=== PATIENT | male | born 1985 | race Caucasian/White ===

== ENCOUNTER 2018-06-17 10:35 | Inpatient (IN) | payer OTHER ==
[~2018-06-17 10:35] MED LIST: Buffered Lidocaine 0.9% SYRIN* 5 ML/SYR SYRINGE INTRADERM ONE
--- OUTSIDE RECORDS SUMMARY | 2018-06-17 10:39 | XMS REPORT | Continuity of Care Document ---
:1985 External Reference #:[id number] Author Name Evelia Romo PA Address [address] [facility] [place] [address] Care Team Providers Name Role Phone Evelia Romo PA Care Team Information [employer] Supervisor Unavailable Payers Type Date Identification Numbers Payment Provider Subscriber Effective: 2018 Policy Number: [id number] [facility] Eric Mckeon PayID: [id number] [address] [place] [address] Advance Directives Description No Information Available Problems Description No Information Family History Date Family Member(s) Problem(s) Comments Father Hypoglycemic Mother COPD First Sister Stroke Grandmother Cancer Lung Social History Type Date Description Comments Sex Unknown Education Highest level completed, 2 years of college Marital Status Single Occupation Currently Working Counterman ETOH Use Occasionally consumes alcohol Tobacco Use Start: Unknown Patient has never smoked Allergies, Adverse Reactions, Alerts Date Description Reaction Status Severity Comments 02/26/2017 Latex redness, burning, and itching Active Medications Medication Date Status Form Strength Qnty SIG Indications Ordering Provider Amoxicillin 05/18/ Hx Tablets 875mg 14tabs 1 pill by H66.93 Nate 2017 - mouth Sunday, 05/25/ twice a DO 2018 day x 7 days Vitamin D 04/03/ Active Capsules 2000Unit 90caps 2 by mouth Nate, 2018 every day Sunday, DO Montelukast 04/03/ Active Tablets 10mg 30tabs 1 by mouth J30.9 Nate Sodium 2018 every day Sunday DO Acetaminophen 02/26/ Active Tablets 500mg 2 by mouth Nate, 2016 three Sunday, times a DO day as needed Metformin HCL / Active Tablets 500mg 1 W/ Unknown 0000 Breakfast 2 AT Dinner Levocetirizine 04/01/ Hx Tablets 5mg 90tabs Take One J30.9 Lisa Sullivan 2016 - Tablet By Sunday, DO 2017 Every Day Etodolac 02/26/ Hx Capsules 200mg as needed Nate 2017 - Sunday, 2017 Immunizations CPT Code Status Date Vaccine Lot # [id number] Refused 05/18/2018 Influenza Virus Vaccine,Quadrivalent,Split,Preserv Free 6-35 Mos Vital Signs Date Vital Result Comment 05/18/2018 3:30pm Weight 413.44 lb pr PT Heart Rate 70 /min BP Systolic 140 mmHg BP Diastolic 90 mmHg Respiratory Rate 18 /min 04/03/2018 2:11pm Weight 415.00 lb pr PT Heart Rate 72 /min BP Systolic 138 mmHg BP Diastolic 84 mmHg Respiratory Rate 18 /min Height 75 inches 6'3" BMI (Body Mass Index) 51.9 kg/m2 10/21/2017 8:00am Weight 386.00 lb Heart Rate 76 /min BP Systolic 144 mmHg BP Diastolic 90 mmHg Respiratory Rate 18 /min Height 75 inches 6'3" BMI (Body Mass Index) 48.2 kg/m2 03/31/2017 8:01am Body Temperature 98.6 F Weight 425.00 lb Heart Rate 88 /min BP Systolic 142 mmHg BP Diastolic 84 mmHg BP Systolic Recheck 138 mmHg BP Diastolic Recheck 84 mmHg Respiratory Rate 18 /min Height 75 inches 6'3" BMI (Body Mass Index) 53.1 kg/m2 02/26/2017 1:08pm Body Temperature 97.4 F Weight 428.00 lb Heart Rate 86 /min BP Systolic 130 mmHg BP Diastolic 90 mmHg BP Systolic Recheck 148 mmHg BP Diastolic Recheck 96 mmHg Respiratory Rate 18 /min Height 75 inches 6'3" O2 % BldC Oximetry 98 % BMI (Body Mass Index) 53.5 kg/m2 Results Test Date Facility Test Result H/L Range Note CBC with Auto Diff-fcmg 04/08/2018 [facility] WBC 10.0 K/uL 4.1-11.0 RBC 4.90 M/uL 4.60-6.10 Hemoglobin 15.0 gm/dL 13.5-18.0 Hematocrit 43.3 % 41.0-53.0 MCV 88.4 fL 80.0-97.0 MCH 30.7 pg 27.0-32.0 MCHC 34.7 g/dL 32.0-36.0 RDW 12.9 % 11.5-14.5 PLT Count 314 K/ul 140-400 MPV 7.0 FL Low 7.1-10.7 Neutrophil 65.0 % 35.0-75.0 Lymphocyte 24.7 % 16.0-52.0 Monocyte 6.4 % 2.0-10.0 Eosinophil 3.5 % 0.0-5.0 Basophil 0.4 % 0.0-4.0 Abs Neutrophils 6.5 K/uL 2.1-8.0 Abs Lymphocytes 2.5 K/uL 0.8-5.5 Abs Monocytes 0.6 K/uL 0.1-1.0 Abs Eosinophils 0.4 K/uL 0.0-0.5 Abs Basophils 0.0 K/uL 0.0-0.3 Comprehensive Met Panel-FCMG 04/08/2018 [facility] Sodium 141 mmol/L 135- 146 1 Potassium 4.4 mmol/L 3.5-5.2 Chloride# 105 mmol/L 97-110 2 Carbon Dioxide 26 mmol/L 24-34 Glucose 98 mg/dL 70-105 BUN 17 mg/dL 6-26 Creatinine 0.8 mg/dL 0.5-1.4 Calcium 9.1 mg/dL 8.5-10.2 Total Protein 6.6 g/dL 6.0-8.0 Albumin 4.0 g/dL 3.6-4.9 Globulin 2.6 g/dL 2.0-3.5 A/G Ratio 1.5 Ratio 1.0-2.2 Total Bilirubin 0.4 mg/dL 0.1-1.3 Alkaline Phosphatase 35 U/L 24-140 Alt 17 U/L 3-42 Ast 10 U/L 8-42 Izabella Egfr >60 >60 3 Non Izabella Egfr >60 >60 4 Anion Gap 10 mmol/L 5-15 5 Hemoglobin A[facility]c [facility] A1[facility] 5.4 % 4.1-5.9 Estimated Average Glucose Calc 108 mg/dL 71-140 Lipid 04/08/2018 [facility] Cholesterol 177 mg/dL 50-199 Triglycerides 103 mg/dL 30-200 HDL 37 mg/dL 29-71 6 Chol/ HDL Ratio 4.8 ratio 4.0-6.7 VLDL 21 mg/dL 2-29 LDL (Calc) 120 mg/dL High 20-99 7 CBC With Auto Diff 02/26/2017 [facility] WBC 12.3 K/uL High 4.1-11.0 RBC 5.18 M/uL 4.60-6.10 Hemoglobin 15.7 gm/dL 13.5-18.0 Hematocrit 47.5 % 41.0-53.0 MCV 91.7 fL 80.0-97.0 MCH 30.2 pg 27.0-32.0 MCHC 33.0 g/dL 32.0-36.0 RDW 13.2 % 11.5-14.5 PLT Count 385 K/ul 140-400 Neutrophil 63.5 % 35.0-75.0 Lymphocyte 25.4 % 16.0-52.0 Monocyte 6.4 % 2.0-10.0 Eosinophil 4.0 % 0.0-5.0 Basophil 0.7 % 0.0-4.0 Abs Neutrophils 7.8 K/uL 2.1-8.0 Abs Lymphocytes 3.1 K/uL 0.8-5.5 Abs Monocytes 0.8 K/uL 0.1-1.0 Abs Eosinophils 0.5 K/uL 0.0-0.5 Abs Basophils 0.1 K/uL 0.0-0.3 Laboratory test finding 02/26/2017 [facility] TSH 1.51 uIU/mL 0.35-4.94 Comprehensive Met Panel-FCMG 02/26/2017 [facility] Sodium 145 mmol/L 135- 146 8 Potassium 5.2 mmol/L 3.5-5.2 Chloride# 104 mmol/L 97-110 9 Carbon Dioxide 28 mmol/L 24-34 Glucose 105 mg/dL 70-105 BUN 13 mg/dL 6-26 Creatinine 0.8 mg/dL 0.5-1.4 Calcium 9.8 mg/dL 8.5-10.2 Total Protein 7.5 g/dL 6.0-8.0 Albumin 4.2 g/dL 3.6-4.9 Globulin 3.3 g/dL 2.0-3.5 A/G Ratio 1.3 Ratio 1.0-2.2 Total Bilirubin 0.4 mg/dL 0.1-1.3 Alkaline Phosphatase 51 U/L 24-140 Alt 21 U/L 3-42 Ast 18 U/L 8-42 Izabella Egfr >60 >60 10 Non Izabella Egfr >60 >60 11 Anion Gap 13 mmol/L 7-16 12 Lipid 02/26/2017 [facility] Cholesterol 200 mg/dL High 50-199 Triglycerides 107 mg/dL 30-200 HDL 44 mg/dL 29-71 13 Chol/ HDL Ratio 4.5 ratio 4.0-6.7 VLDL 21 mg/dL 2-29 LDL (Calc) 135 mg/dL High 20-99 14 Hemoglobin A1c 02/26/2017 [facility] Hemoglobin A1c 6.3 % High 4.1-5.9 Estimated Average Glucose Calc 134 71-140 1 Updated reference range on new analyzer 2 Updated reference range on new analyzer 3 Concerning GFR Guidelines for Americans: Normal function or mild renal disease, if clinically at risk: >/=60 mL/min Moderately decreased: 30-59 Severely decreased: 15-29 Renal failure: <15 4 Concerning GFR Guidelines: Normal function or mild renal disease, if clinically at risk: >/=60 mL/min Moderately decreased: 30-59 Severely decreased: 15-29 Renal failure: <15 Glomerular Filtration Rate (GFR) is estimated based on the MDRD equation, which assumes a steady state for creatinine as recommended by the National Kidney Disease Education Program in conjunction with the National Institutes of Health and the National Kidney Foundation. Clinical conditions in which it may be necessary to measure GFR by using clearance methods include extremes of age and body size, severe malnutrition or obesity, diseases of skeletal muscle, paraplegia or quadriplegia, vegetarian diet, rapidly changing kidney function, and calculation of the dose of potentially toxic drugs that are excreted by the kidneys. 5 Updated Reference Range 6 Per NCEP ATP III Guidelines: Results lower than 40 mg/dL are suggestive of increased risk for coronary artery disease. Results > or=to 60 mg/dL are considered a negative risk factor. 7 Per NCEP ATP III Guidelines: Normal Population <130 Patients with medical conditions: CHD/DM Optimal: <100 Borderline high: 130-159 High: 160-189 Very high: >189 8 Updated reference range on new analyzer 9 Updated reference range on new analyzer 10 Concerning GFR Guidelines for Americans: Normal function or mild renal disease, if clinically at risk: >/=60 mL/min Moderately decreased: 30-59 Severely decreased: 15-29 Renal failure: <15 11 Concerning GFR Guidelines: Normal function or mild renal disease, if clinically at risk: >/=60 mL/min Moderately decreased: 30-59 Severely decreased: 15-29 Renal failure: <15 Glomerular Filtration Rate (GFR) is estimated based on the MDRD equation, which assumes a steady state for creatinine as recommended by the National Kidney Disease Education Program in conjunction with the National Institutes of Health and the National Kidney Foundation. Clinical conditions in which it may be necessary to measure GFR by using clearance methods include extremes of age and body size, severe malnutrition or obesity, diseases of skeletal muscle, paraplegia or quadriplegia, vegetarian diet, rapidly changing kidney function, and calculation of the dose of potentially toxic drugs that are excreted by the kidneys. 12 Updated reference range on new analyzer 13 Per NCEP ATP III Guidelines: Results lower than 40 mg/dL are suggestive of increased risk for coronary artery disease. Results > or=to 60 mg/dL are considered a negative risk factor. 14 Per NCEP ATP III Guidelines: Normal Population <130 Patients with medical conditions: CHD/DM Optimal: <100 Borderline high: 130-159 High: 160-189 Very high: >189 Procedures Date Code Description Status 02/26/2017 95269 Measure Blood Oxygen Level Single Determination Completed 02/26/2017 60315 Screening Hearing Test Completed Encounters Type Date Location Provider Dx Diagnosis Office Visit 04/03/2018 Evelia Lam PA J30.9 Allergic rhinitis, 2:00p unspecified Z68.43 Body mass index (BMI) 50-59.9 , adult Office Visit 10/21/2017 8:00a [facility] Evelia Romo PA R03.0 Elevated blood-pressure reading, w/o diagnosis of htn E66.9 Obesity, unspecified Z68.42 Body mass index (BMI) 45.0-49.9, adult Office Visit 03/31/2017 8:00a [facility] Evelia Romo PA R03.0 Elevated blood-pressure reading, w/o diagnosis of htn Office Visit 02/26/2017 1:15p [facility] Evelia Romo PA Z00.00 Encntr for general adult medical exam w/o abnormal findings E66.9 Obesity, unspecified R03.0 Elevated blood-pressure reading, w/o diagnosis of htn Plan of Treatment Future Appointment(s):11/16/2018 9:00 am - Evelia Romo PA at [facility]2017 - Evelia Romo, PAH66.93 Otitis media, unspecified, bilateralNew Medication:Amoxicillin 875 mg - 1 pill by mouth twice a day x 7 daysComments:BL OM, L > RWill treat with amoxTylenol/ibuprofen to help with painPush fluidsCall with worsening/persisting [id number] Elevated blood-pressure reading, without diagnosis of hypertComments:BP improved todayWill continue to monitorCall/to ER with chest pain, palpitations, SOB, headache, dizziness, vision changesFollow up:6 months
[2018-06-17] MEDS ORDERED: ceFAZolin 1 GM ADVAN(*) 1 GM ADDV.VIAL IVPB ONE ×2 (11:08→11:40)
[2018-06-17] MEDS ORDERED: ceFAZolin 2 GM PREMIX in ORs 2 GM/50 ML BAG IVPB ONE (11:09)
[2018-06-17] MEDS ORDERED: Clindamycin 900 MG/D5W BAG(*) 900 MG/50 ML BAG IVPB ONE (11:09)
[2018-06-17] MEDS ORDERED: Bupivacaine 0.25% EPI 200,000* 30 ML SDV ONE (11:54)
[2018-06-17] MEDS ORDERED: Heparin VIAL(*) 5000 UNITS/ML VIAL (FIVE THOUSAND) ONE (12:05)
[2018-06-17] MEDS ORDERED: fentaNYL* 50 MCG/ML 2 ML VIAL (100 MCG VIAL) ONE ×5 (12:16→15:32)
[2018-06-17] MEDS ORDERED: Propofol* 10 MG/ML 20 ML BTL ONE (12:17)
[2018-06-17] MEDS ORDERED: Rocuronium* 10 MG/ML VIAL ONE ×2 (12:18→12:19)
[2018-06-17] MEDS ORDERED: Ketorolac INJ* 30 MG/ML 1 ML VIAL ONE (13:58)
[2018-06-17] MEDS ORDERED: Ondansetron INJ* 2 MG/ML VIAL ONE ×2 (13:58→15:32)
[2018-06-17] MEDS ORDERED: Dexamethasone IV* 4 MG/ML 1 ML (4 MG) ONE (13:58)
[2018-06-17] MEDS ORDERED: Cisatracurium* 2 MG/ML MDV 5 ML ONE (14:09)
[2018-06-17] MEDS ORDERED: DiMENhydriNATE IV* 50 MG/ML VIAL IV PUSH PRN (14:15)
[2018-06-17] MEDS ORDERED: Naloxone* 0.4 MG/ML 1 ML VIAL IV PRN (14:15)
[2018-06-17] MEDS ORDERED: Glycopyrrolate IV* 0.2 MG/ML 1 ML VIAL ONE (14:37)
[2018-06-17] MEDS ORDERED: Neostigmine Methylsulfate* 1 MG/ML 10 ML VIAL (1 mg/ml) ONE (14:37)
[2018-06-17] MEDS ORDERED: diPHENhydraMINE IV* 50 MG/ML 1 ml VIAL (BENADRYL) SLOW PUSH PRN (14:43)
[2018-06-17] MEDS ORDERED: HYDROcodone/ACET. 7.5/325 LIQ* 15 ML UDC PO PRN (14:43)
[2018-06-17] MEDS ORDERED: HYDROmorphone INJ1* 1 MG/ML SYRINGE IV PRN (14:43)
[2018-06-17] MEDS ORDERED: Ondansetron INJ* 2 MG/ML VIAL IV PRN (14:43)
[2018-06-17] MEDS ORDERED: Acetaminophen ADULT LIQ* 650 MG/20.3 ML UDC PO PRN (14:43)
--- NOTE | 2018-06-17 14:43 | BRIEFOPN ---
Brief Operative Note - Surgery Procedures: Pre-OP Diagnoses: Clinically severe obesity Post-op Diagnosis: same Procedure: Laparoscopic sleeve gastrectomy Surgeon: Helio Asst: Sammy Anethesia: GETA EBL: 50cc IVF: 1800cc LR Specimen: portion of stomach Drains: none
[2018-06-17] MEDS ORDERED: Scopolamine 1.5 mg* PATCH ONE (14:55)
[2018-06-17] MEDS ORDERED: DiMENhydriNATE IV* 50 MG/ML VIAL ONE ×2 (14:55→15:32)
[2018-06-17] MEDS: fentaNYL* 50 MCG/ML 2 ML VIAL (100 MCG VIAL) IV PRN ×4 (15:01→16:10)
[2018-06-17] MEDS: Ketorolac INJ* 30 MG/ML 1 ML VIAL IV PRN (20:17)
[2018-06-17] MEDS: Famotidine IV* 10 MG/ML 2 ML (20 mg) IV SLOW PU SCH (20:22)
[2018-06-17] MEDS: Heparin VIAL(*) 5000 UNITS/ML VIAL (FIVE THOUSAND) SUBCUT SCH (23:25)
[2018-06-18] MEDS: Ketorolac INJ* 30 MG/ML 1 ML VIAL IV PRN ×2 (02:21→10:19)
[2018-06-18] MEDS: Heparin VIAL(*) 5000 UNITS/ML VIAL (FIVE THOUSAND) SUBCUT SCH ×2 (05:28→14:21)
--- NOTE | 2018-06-18 05:35 | OP ---
CC: Evelia Romo NP; [facility].* DATE OF OPERATION: 06/17/18 - ROOM #353 DATE OF : 87 SURGEON: Mariano Cadet MD. TAILOR HELPER: JOHN Nowak. ANESTHESIOLOGIST: Dr. Machado. ANESTHESIA: General anesthesia. PRE-OP DIAGNOSIS: Clinically severe obesity. POST-OP DIAGNOSIS: Clinically severe obesity. OPERATIVE PROCEDURE: Laparoscopic sleeve gastrectomy. ESTIMATED BLOOD LOSS: 50 mL. FLUIDS: 1800 mL of crystalloid fluid given. SPECIMEN: Portion of stomach. DRAINS: None. The patient was extubated and transferred to PACU. DESCRIPTION OF PROCEDURE: The patient was identified in the preoperative area, marked. Consent was signed. He was taken to the operating room, placed on the operating table in supine position. Preoperative antibiotics were given. Sequential devices were placed on bilateral lower extremities. General anesthesia was induced. The patient's abdomen was prepped and draped in a standard surgical fashion. A time-out was performed. Folds of the umbilicus were elevated anteriorly and a Veress needle was inserted into the abdominal cavity, which was then allowed to insufflate to a pressure of 15 mmHg. The patient tolerated the insufflation well. [place] between the xiphoid and the umbilicus just left the midline, a 12-mm trocar was inserted. Laparoscope was inserted through this and there was no evidence of injury from the trocar insertion or from the Veress needle, which was then removed. Review of the abdomen showed large omentum, a reasonably sized liver, and we appreciated with surgery, which included placing two 5 mm ports in the left upper quadrant and one 12 mm port in the right upper quadrant. The patient was placed in a steep reverse Trendelenburg and a Rocio retractor that was inserted through a subxiphoid incision and the liver was retracted anteriorly to the right, exposing a significantly large gastroesophageal fat pad. This was grasped and retracted towards the right lower quadrant. Both blunt dissection and cautery were utilized to take this fat off and rotated towards the midline. We extended this towards the diaphragm. Next, a retrogastric tunnel was made at approximately 5 cm from the pylorus, proximally along the greater curvature. We took the vasculature to the greater curvature with LigaSure device right up to the angle of His, which previously dissected. It did require dissection of additional fat pad anteriorly. There was no significant fat pad noted posteriorly and there was no evidence of a hiatal hernia. Once the stomach was able to be rotated along its axis, the sleeve stomach stapling was commenced. We upsized the 12 mm trocar in the right upper quadrant to a 15 mm and then inserted a 60 mm black load SHON stapling devices with reinforcement strips, placed just along the greater curvature at 5 cm proximal to the pylorus and extending it towards the incisura. Prior to firing this, a 40-Indonesian bougie was inserted into the distal stomach. The stapler was taken and after the stapler was fired, we noted that it did extend towards the creeping fat off the lesser curvature. This fat was then dissected off the stapler line and we extended this superiorly along the anterior aspect of the stomach. This required a clip-car and yard supervisor and LigaSure to gain hemostasis off this lesser omentum extended fat, but this gave us an opportunity to now see the anterior stomach closer to the lesser curvature and then another 60 mm purple SHON stapler device was fired across, making sure to go through healthy stomach and avoid the fat. We did dissect additional proximal fat that was creeping from the lesser curvature up towards where we had already freed up the gastroesophageal fat pad. This gave us a clean view of the anterior aspect of the stomach and the sleeve stomach was completed with additional 60 mm purple SHON stapling device with reinforcement straps until a full sleeve stomach was created. We stayed closest to the bougie as we could. There was significant creeping fat both posterior and anteriorly, along the lesser curvature and we stayed out of this area. The bougie was then removed. Review of the staple line showed that it did take a small little anterior jump at the second staple line, but then carried back onto a line that stayed mostly on the lateral aspect. There was no corkscrewing and there was no angulation. We then irrigated and cleaned up some of the blood loss that we noted on dissecting some of the creeping fat off of that lesser curvature. Hemostasis was achieved. We did end up placing some Surgicel along the fold of the second staple line. Next, the Rocio retractor was removed after the bougie was removed in its entirety. The liver fell back on to the stomach. It did not obscure the sleeve stomach entirely, but mostly. Next, the stomach was placed in an endoscopic retrieval bag and brought up through the right upper quadrant port site after dilating this wound. This was passed off as specimen and then the fascia was closed at the right upper quadrant port site using a Weck device using a 0 Vicryl stitch. The abdomen was allowed to collapse. Trocars were removed under direct vision and all skin incisions were reapproximated with 4-0 Monocryl sub followed by sterile dressing. The patient tolerated the procedure well and was woken up in the OR, and transferred to the PACU in stable condition. [id number]/[facility] #: [id number] MTDD
[2018-06-18] MEDS: Famotidine IV* 10 MG/ML 2 ML (20 mg) IV SLOW PU SCH (08:29)
--- NOTE | 2018-06-18 12:35 | PN ---
Progress Note - Progress Note Date of Service: 06/18/18 Note: S: Seen briefly in radiology by Dr. Cadet. Doing well. Pain controlled. No N/V. Ambulating O: Vital Signs - 8 hr 06/18/18 06/18/18 06/18/18 07:10 08:00 08:38 Temperature 97.8 F Pulse Rate 59 48 Respiratory 16 20 Rate Blood Pressure 152/78 (mmHg) O2 Sat by Pulse 100 100 98 Oximetry 06/18/18 06/18/18 10:22 11:14 Temperature 98.6 F Pulse Rate 55 50 Respiratory 16 Rate Blood Pressure 134/65 (mmHg) O2 Sat by Pulse 98 100 Oximetry Intake and Output Last 24 Hours 06/16/18 06/17/18 06/18/18 06/19/18 06:59 06:59 06:59 06:59 Intake Total 4180 Output Total 1225 225 Balance 2955 -225 Weight 395 lb Intake: IV Fluids 4180 CEFAZOLIN 3GM IV 100 CLINDAMYCIN 900MG IV 50 LR 4030 Oral 0 Output: Urine 1125 225 Estimated Blood Loss 100 Other: # Bowel Movements 0 Gen: appears comfortable; NAD Heart: reg Lungs: clear ant Abd: lap sites clean and dry; +BS; soft; no sig tenderness UGI: patent; no leak A: s/p lap sleeve gastrectomy P: kimberley clears; poss d/c home later today
[2018-06-18] MEDS ORDERED: D5W 1/2 NS KCl 20 Meq 1000 ML* 1,000 ML IV SCH (14:44)
[2018-06-18 15:29] VITALS: BP 160/81
--- NOTE | 2018-06-18 15:51 | DS ---
CC: JOHN Vasquez; [facility] * DATE OF ADMISSION: 06/17/2018. DATE OF DISCHARGE: 06/18/2018. HISTORY: Mr. Mckeon is a 33-year-old gentleman, worked up as an outpatient with clinically severe obesity and presented to Same Day Surgery on 06/17/2018 and underwent a laparoscopic sleeve gastrectomy. Please see operative report for details. HOSPITAL COURSE: In the postoperative period, the patient was transferred to the Short Stay Surgical Unit where he continued to do well, ambulating and was treated for pain. On postoperative day one, the patient underwent an upper GI study which was within normal limits. He was started on a liquid diet and was discharged home with instructions sheets and a planned follow-up next week. PHYSICAL EXAMINATION: Physical exam was performed on the day of discharge. The patient was afebrile. Vital signs were stable. Alert and oriented times three, in no apparent distress. HEENT: Normocephalic, atraumatic. Sclerae anicteric. Mucus membranes are moist. Lungs are clear to auscultation bilaterally. Abdomen is soft, obese, tender at the right upper quadrant without rebound. Dressing is intact. Extremities were within normal limits. No calf tenderness. PLAN: Discharge home, status post sleeve gastrectomy. [id number]/[facility] #: [id number] [facility]ITAL[facility]
[2018-06-20] MEDS ORDERED: Scopolamine PATCH Remove* 1 NOTE MISC PATCH OFF ONE (15:35)
== END 2018-06-18 16:00 | disposition home or self-care (01) | DRG 403 ==
LOC: AA 10:35 → SSU 16:34
PROVIDERS: ADMIT Surgery; ATTEND Surgery
PROC: 0DB64Z3 Excision of Stomach, Percutaneous Endoscopic Approach, Vertical (ICD-10-PCS; principal; 2018-06-17 12:30)
DX: E66.01 Morbid (severe) obesity due to excess calories (principal); R73.01 Impaired fasting glucose; G47.33 Obstructive sleep apnea (adult) (pediatric); F32.9 Major depressive disorder, single episode, unspecified; I10 Essential (primary) hypertension; Z83.3 Family history of diabetes mellitus; Z82.3 Family history of stroke; Z83.6 Family history of other diseases of the respiratory system; Z91.040 Latex allergy status; Z72.89 Other problems related to lifestyle; Z68.43 Body mass index [BMI] 50.0-59.9, adult
CPT/HCPCS: 74246; 88307; 90686; A9270-GY; J0690; J1100; J1170; J1240; J1644; J1885; J2405; J2704; J2710; J3010

== ENCOUNTER 2019-05-13 09:34 | Emergency (ER) | payer OTHER ==
[2019-05-13 11:45] VITALS: BP 137/86
--- NOTE | 2019-05-13 12:14 | UC ---
Shoulder Pain HPI - HPI Summary HPI Summary: 34 yo male with right shoulder pain x 2 weeks was reaching to leaf size picker object and felt a pop he is right handed no neck pain - History of Current Complaint Chief Complaint: UCUpperExtremity Stated Complaint: R SHOULDER PAIN Time Seen by Provider: 05/13/19 11:47 Hx Obtained From: Patient Onset/Duration: Gradual Onset Timing: Constant Severity Initially: Moderate Severity Currently: Mild Location Of Pain: Is Diffuse Pain Intensity: 2 Pain Scale Used: 0-10 Numeric Character: Dull, Aching Aggravating Factor(s): Movement, Internal Rotation Alleviating Factor(s): Rest Related History: Dominant Hand Right Torso: 1 - pain here, unable to abduct greater than 90 degrees - Allergies/Home Medications Allergies/Adverse Reactions: Allergies Allergy/AdvReac Type Severity Reaction Status Date / Time latex Allergy redness Verified 05/13/19 11:46 and itchness Home Medications: Home Medications Acetaminophen [APAP] 650 mg PO Q4HR PRN 05/13/19 [History Confirmed 05/13/19] Multivitamin [Multivitamins] 1 cap PO DAILY 05/13/19 [History Confirmed 05/13/19 ] PMH/Surg Hx/FS Hx/Imm Hx Previously Healthy: Yes Respiratory History: Asthma - Surgical History Surgical History: Yes Surgery Procedure, Year, and Place: EAR TUBES-REPORTS NO TUBES AT PRESENT, bariatric surgery 06/2018, vasectomy 01/2019 - Family History Known Family History: Positive: Hypertension - Social History Alcohol Use: Occasionally Substance Use Type: None Smoking Status (MU): Never Smoked Tobacco - Immunization History Most Recent Influenza Vaccination: 06/18/18 Most Recent Pneumonia Vaccination: HAS NOT HAD Review of Systems All Other Systems Reviewed And Are Negative: Yes Constitutional: Positive: Negative Skin: Positive: Negative Eyes: Positive: Negative ENT: Positive: Negative Respiratory: Positive: Negative Cardiovascular: Positive: Negative Gastrointestinal: Positive: Negative Genitourinary: Positive: Negative Motor: Positive: Negative Neurovascular: Positive: Negative Musculoskeletal: Positive: Arthralgia - right shoulder Neurological: Positive: Negative Psychological: Positive: Negative Physical Exam Triage Information Reviewed: Yes Appearance: Well-Appearing, No Pain Distress, Well-Nourished Vital Signs: Initial Vital Signs Temp 98.1 F 05/13/19 11:41 Pulse 52 05/13/19 11:41 Resp 16 05/13/19 11:41 BP 137/86 05/13/19 11:41 Pulse Ox 100 05/13/19 11:41 Vital Signs Reviewed: Yes Eyes: Positive: Conjunctiva Clear ENT: Negative: Nasal congestion, Nasal drainage, Trismus, Muffled voice, Hoarse voice Dental Exam: Normal Neck: Positive: Supple, Nontender Respiratory: Positive: Lungs clear, Normal breath sounds, No respiratory distress, No accessory muscle use Cardiovascular: Positive: RRR, No Murmur Musculoskeletal: Positive: No Edema, ROM Limited @ - right shoulder- see image Neurological: Positive: Alert Psychological Exam: Normal Skin Exam: Normal Diagnostics - Radiology No standard instances Radiology Interpretation Completed By: Radiologist Summary of Radiographic Findings: neg Shoulder Course/Dx - Differential Dx/Diagnosis Provider Diagnosis: Right shoulder strain Discharge ED - Sign-Out/Discharge Documenting (check all that apply): Patient Departure All imaging exams completed and their final reports reviewed: Yes - Discharge Plan Condition: Stable Disposition: HOME Patient Education Materials: Shoulder Pain (ED) Referrals: Lane Main MD [Medical Doctor] - As Soon As Possible Additional Instructions: ice twice daily tylenol I suggest recheck with orthopedist - Billing Disposition and Condition Condition: STABLE Disposition: Home
== END 2019-05-13 13:14 | disposition home or self-care (01) ==
LOC: UCCORT 09:34
DX: S46.911A Strain of unspecified muscle, fascia and tendon at shoulder and upper arm level, right arm, initial encounter (principal); J45.909 Unspecified asthma, uncomplicated; Z91.040 Latex allergy status; X58.XXXA Exposure to other specified factors, initial encounter; Y93.89 Activity, other specified; Y92.9 Unspecified place or not applicable
CPT/HCPCS: 99211; G0463

== ENCOUNTER 2019-06-02 08:21 | Emergency (ER) | payer OTHER ==
--- OUTSIDE RECORDS SUMMARY | 2019-06-02 08:31 | XMS REPORT | Continuity of Care Document ---
:1985 External Reference #:[id number] Author Name Lane Main MD (transmitted by agent of provider Oli Luis) Address [address] [place] [id number] Care Team Providers Name Role Phone Evelia Romo P.A. - Physician Care Team Information Business Performance Analyst [employer] Problems Description No Information Available Social History Type Date Description Comments Sex Unknown Allergies, Adverse Reactions, Alerts Description No Information Available Medications Description No Information Available Immunizations Description No Information Available Vital Signs Description No Information Available Results Description No Information Available Procedures Description No Information Available Medical Devices Description No Information Available Encounters Description No Information Available Assessments Date Code Description Provider 05/14/2019 M75.41 Impingement syndrome of right shoulder Lane Main MD Plan of Treatment 05/14/2019 - Lane Main, MDM75.41 Impingement syndrome of right shoulderComments:home exercises sheetsFollow up:Follow up: As needed Functional Status Description No Information Available Mental Status Description No Information Available Referrals Description No Information Available
[2019-06-02 08:42] VITALS: BP 130/77
--- NOTE | 2019-06-02 09:27 | UC ---
Respiratory Complaint HPI - HPI Summary HPI Summary: 34 yo man comes with onset of symptoms this morning of cough and congestion, sore throat. He is concerned because of + strep exposure. Generally healthy, now one year post bariatric surgery. No hx of asthma or pneumonia. - History of Current Complaint Chief Complaint: UCRespiratory Stated Complaint: COUGH,CONGESTION Time Seen by Provider: 06/02/19 09:19 Hx Obtained From: Patient Onset/Duration: Sudden Onset, Lasting Hours Timing: Constant Severity Initially: Mild Severity Currently: Mild Pain Intensity: 0 Character: Cough: Nonproductive Alleviating Factors: Nothing Associated Signs And Symptoms: Positive: URI, Nasal Congestion. Negative: Dyspnea, Fever - Risk Factors Pulmonary Embolism Risk Factors: Negative Cardiac Risk Factors: Negative Pseudomonas Risk Factors: Negative Tuberculosis Risk Factors: Negative - Allergies/Home Medications Allergies/Adverse Reactions: Allergies Allergy/AdvReac Type Severity Reaction Status Date / Time latex Allergy redness Verified 06/02/19 08:37 and itchness Home Medications: Home Medications Vitamin THERAPEUTIC TAB* [Theragran TAB*] 1 tab PO DAILY 06/02/19 [History Confirmed 06/02/19] guaiFENesin [Mucinex] 600 mg PO ONCE 06/02/19 [History Confirmed 06/02/19] PMH/Surg Hx/FS Hx/Imm Hx Previously Healthy: Yes - obese; over 200 pounds weight loss post bariatric tx - Surgical History Surgical History: Yes Surgery Procedure, Year, and Place: Vasectomy, 2019; Verticle Sleeve Gastrectomy , 2018; Bilateral Ear Tubes, ~1999 - Family History Known Family History: Positive: Cardiac Disease - 1 uncle of acute SC age 60, Hypertension, Diabetes - Social History Occupation: Employed Full-time Lives: With Family Alcohol Use: Occasionally Substance Use Type: None Smoking Status (MU): Never Smoked Tobacco - Immunization History Most Recent Influenza Vaccination: 06/18/18 Most Recent Pneumonia Vaccination: HAS NOT HAD Review of Systems All Other Systems Reviewed And Are Negative: Yes Constitutional: Positive: Negative Skin: Positive: Negative Eyes: Positive: Negative ENT: Positive: Sore Throat Respiratory: Positive: Cough Cardiovascular: Positive: Negative Gastrointestinal: Positive: Negative Genitourinary: Positive: Negative Motor: Positive: Negative Neurovascular: Positive: Negative Musculoskeletal: Positive: Negative Neurological: Positive: Negative Psychological: Positive: Negative Is Patient Immunocompromised?: No Physical Exam Triage Information Reviewed: Yes Appearance: Well-Appearing, No Pain Distress Vital Signs: Initial Vital Signs Temp 98.6 F 06/02/19 08:35 Pulse 56 06/02/19 08:35 Resp 14 06/02/19 08:35 BP 130/77 06/02/19 08:35 Pulse Ox 100 06/02/19 08:35 ENT: Positive: Pharyngeal erythema, TM dull - right TM with opacity, decreased light reflex, no erythema. Negative: Tonsillar swelling, Tonsillar exudate Dental Exam: Normal Neck: Positive: Supple, Nontender, No Lymphadenopathy Respiratory: Positive: Lungs clear, Normal breath sounds Cardiovascular: Positive: RRR, No Murmur Musculoskeletal Exam: Normal Neurological Exam: Normal Psychological Exam: Normal Skin Exam: Normal Diagnostics - Laboratory Lab Results: rapid strep negative. Respiratory Course/Dx - Differential Dx/Diagnosis Differential Diagnosis/HQI/PQRI: Laryngitis, Lower Resp Infection, Other - strep Provider Diagnosis: Pharyngitis Discharge ED - Sign-Out/Discharge Documenting (check all that apply): Patient Departure All imaging exams completed and their final reports reviewed: No Studies - Discharge Plan Condition: Good Disposition: HOME Patient Education Materials: Pharyngitis (ED) Referrals: Evelia Romo PA [Primary Care Provider] - Additional Instructions: Rapid strep testing is negative. Use warm water and salt gargling to relieve pain, and acetaminophen or ibuprofen as needed for pain. Follow up if you have persistent sore throat or develop a fever. - Billing Disposition and Condition Condition: GOOD Disposition: Home
== END 2019-06-02 09:42 | disposition home or self-care (01) ==
LOC: UCCORT 08:21
DX: J02.9 Acute pharyngitis, unspecified (principal); Z91.040 Latex allergy status
CPT/HCPCS: 87651; 99211; G0463